=== PATIENT | male | born 1990 | race African-American/Black ===

== ENCOUNTER 2020-03-24 11:23 | Emergency (ER) | payer OTHER ==
[~2020-03-24] VITALS: Ht 180.3 cm; Wt 86.8 kg
[2020-03-24 12:30] VITALS: BP 135/90; PULSE 85; TEMP 98.2
== END 2020-03-24 12:20 | disposition home or self-care (01) ==
LOC: COL.ER 11:23
DX: S90.851A Superficial foreign body, right foot, initial encounter (principal); F17.210 Nicotine dependence, cigarettes, uncomplicated; W31.2XXA Contact with powered woodworking and forming machines, initial encounter; Y93.01 Activity, walking, marching and hiking; Y92.009 Unspecified place in unspecified non-institutional (private) residence as the place of occurrence of the external cause